=== PATIENT | male | born 1985 | race African-American/Black ===

== ENCOUNTER 2018-06-19 16:53 | Emergency (ER) | payer SELFPAY ==
[~2018-06-19] VITALS: Ht 182.9 cm; Wt 90.7 kg
[2018-06-19 17:55] LABS: Urine WBC None Seen /hpf (0 - 3)
[2018-06-19 18:36] VITALS: BP 156/91
[2018-06-19 18:36] LABS: Alcohol, Urine < 3.0 mg/dL (0-5); Amphetamine Screen, Urine NEGATIVE (NEGATIVE); Barbiturate Scree,Urine NEGATIVE (NEGATIVE); Benzodiazephine Screen, Urine NEGATIVE (NEGATIVE); Cannabinoid Screen, Urine NEGATIVE (NEGATIVE); Cocaine Screen, Urine NEGATIVE (NEGATIVE); Opiate Scree,Urine NEGATIVE (NEGATIVE); Phencyclidine Screen, Urine NEGATIVE (NEGATIVE)
[2018-06-19] MEDS: ONDANSETRON ODT 4 MG TAB PO ONE (18:44)
[2018-06-19 19:01] LABS: Urine Amorphous Crystal FEW /hpf (None Seen); Urine Bacteria NONE SEEN /hpf (None Seen); Urine Blood Negative /uL (Negative); Urine Specific Gravity 1.021 (1.001-1.035)
== END 2018-06-19 20:55 | disposition home or self-care (01) ==
LOC: EDBD 16:53 → ER 16:57
DX: S09.8XXA Other specified injuries of head, initial encounter (principal); M54.2 Cervicalgia; R11.0 Nausea; W22.8XXA Striking against or struck by other objects, initial encounter; Y93.89 Activity, other specified; Y92.69 Other specified industrial and construction area as the place of occurrence of the external cause; Y99.8 Other external cause status
CPT/HCPCS: 70450; 72125; 80307; 81001; Q0162